=== PATIENT | female | born 1955 | race Hispanic/Latino ===

== ENCOUNTER 2017-11-06 10:34 | Observation (INO) | payer OTHER ==
[2017-11-06 11:32] LABS: Absolute Lymphocytes (CBC) 2.1 K/uL (0.7-4.9); Absolute Monocytes 0.5 K/uL (0.1-1.3); Absolute Neutrophil 8.9 K/uL (1.8-8.0); Basophils % 0.3 % (0-1.3); Eosinophils % 2.5 % (0-4.4); Hematocrit 45.9 % (36.0-45.0); Lymphocytes % 17.6 % (15.3-44.8); MCH 28.3 pg (27.0-35.0); MCV 84.8 fL (80-100); MPV 9.8 fL (7.6-11.3); Monocytes % 4.6 % (3.3-12.3); RBC Red Blood Cell Count 5.41 M/uL (3.86-4.86)
[2017-11-06] MEDS ORDERED: METOPROLOL TAR 50 MG TAB ONE (11:32)
[2017-11-06] MEDS ORDERED: ASPIRIN 81 MG CHEWABLE TABLET ONE (11:32)
[2017-11-06] MEDS ORDERED: MORPHINE 4 MG/ML SYR ONE (11:33)
[2017-11-06] MEDS ORDERED: ONDANSETRON 4 MG/2 ML VIAL ONE (11:33)
[2017-11-06 11:40] LABS: Protime INR 0.97
[2017-11-06 11:54] LABS: Albumin 3.8 g/dL (3.4-5.0); Bilirubin Direct 0.1 mg/dL (0-0.2); Bilirubin Total 0.5 mg/dL (0.2-1.0); CKMB Creatine Kinase MB 1.1 ng/mL (0.3-3.6); Magnesium 2.2 mg/dL (1.8-2.4); Potassium 3.7 mmol/L (3.5-5.1); Protein, Total 7.5 g/dL (6.4-8.2)
[2017-11-06] MEDS ORDERED: NA CHLORIDE 0.9% 100 ML IV ONE (11:59)
[2017-11-06] MEDS ORDERED: HYDROMORPHONE HCL 0.5 MG/0.5 ML INJ ONE (11:59)
--- NOTE | 2017-11-06 12:04 | EKG ---
Test Date: 2017-11-06 Test Time: 10:44:14 Paper Carrier: ULISES MEASUREMENT RESULTS: Intervals: Rate: 68 ID: [id number] QRSD: 84 QT: 396 QTc: 421 Rowe: P: 65 ID: [id number] QRS: 31 T: 56 INTERPRETIVE STATEMENTS: Normal sinus rhythm Normal ECG Compared to ECG 06/05/2013 11:24:39 No significant changes Electronically Signed On 11-06-17 12:03:25 CDT by Kit Peters
--- NOTE | 2017-11-06 12:25 | RAD REPORT ---
EXAM DESCRIPTION: CT - Thorax W/ Con CLINICAL HISTORY: Chest pain chest pain COMPARISON: Chest Single View dated 11/06/2017 FINDINGS: The lungs are clear. No pleural thickening or pleural effusion. No pneumothorax. No axillary, mediastinal or hilar adenopathy. No concerning bony finding. No gross upper abdominal finding. All CT scans are performed using dose optimization technique as appropriate and may include automated exposure control or mA/KV adjustment according to patient size. IMPRESSION: Negative study.
--- NOTE | 2017-11-06 12:26 | RAD REPORT ---
EXAM DESCRIPTION: RAD - Chest Single View - 11/06/2017 12:03 pm CLINICAL HISTORY: CHEST PAIN Chest pain. COMPARISON: CHEST SINGLE VIEW dated 05/05/2015; CHEST PA AND LAT 2 VIEW dated 08/25/2014; CHEST PA AND LAT 2 VIEW dated 06/09/2013; CHEST PA AND LAT 2 VIEW dated 09/11/2007 FINDINGS: Portable technique limits examination quality. The lungs are grossly clear. The heart is normal in size. No displaced fractures. IMPRESSION: No acute intrathoracic process suspected.
--- NOTE | 2017-11-06 13:27 | EDPHYS ---
Physician Documentation [facility] Name: Ketty Gayle Age: 62 yrs Sex: Female : 1955 Arrival Date: 11/06/2017 Time: 10:36 Bed 6 Private MD: Dmitry Kennedy ED Physician Adam Cobb HPI: 11/06 18:30 This 62 yrs old Female presents to ER via Ambulatory with complaints of Chest kdr Tightness, Nausea. 18:30 The patient or guardian reports chest pain that is located primarily in the substernal kdr area, anterior chest wall, bilaterally, chest diffusely. Onset: suddenly, Has been ongoing and intermittent for the past week or more. The pain radiates to left back. Associated signs and symptoms: Pertinent positives: nausea, syncope, Pertinent negatives: diaphoresis, dizziness, headache, lightheadedness, near syncope, palpitations, recent travel, shortness of breath, vomiting. The chest pain is described as aching, squeezing. Duration: The patient or guardian reports multiple episodes, that are intermittent, that wax and wane, with no pattern. Severity of pain: At its worst the pain was mild moderate just prior to arrival, in the emergency department the pain is unchanged. The patient has not experienced similar symptoms in the past. The patient has not recently seen a physician. Historical: - Allergies: 10:40 Ciprofloxacin; sg 10:40 Fortaz; sg - PMHx: 10:40 None; sg - PSHx: 10:40 Cholecystectomy; Hysterectomy; Appendectomy; sg - Immunization history:: Adult Immunizations up to date. - Social history:: Smoking status: Patient/guardian denies using tobacco, the patient reports quitting approximately 3 years ago. - Ebola Screening: : Patient negative for fever greater than or equal to 101.5 degrees Fahrenheit, and additional compatible Ebola Virus Disease symptoms Patient denies exposure to infectious person Patient denies travel to an Ebola-affected area in the 21 days before illness onset No symptoms or risks identified at this time. ROS: 18:30 Constitutional: Negative for fever, chills, and weight loss, Eyes: Negative for injury, kdr pain, redness, and discharge, ENT: Negative for injury, pain, and discharge, Neck: Negative for injury, pain, and swelling, Respiratory: Negative for shortness of breath, cough, wheezing, and pleuritic chest pain, Abdomen/GI: Negative for abdominal pain, nausea, vomiting, diarrhea, and constipation, Back: Negative for injury and pain, : Negative for injury, bleeding, discharge, and swelling, MS/Extremity: Negative for injury and deformity, Skin: Negative for injury, rash, and discoloration, Neuro: Negative for headache, weakness, numbness, tingling, and seizure activity. Psych: Negative for depression, anxiety, suicide ideation, homicidal ideation, and hallucinations, Allergy/Immunology: Negative for hives, rash, and allergies, Endocrine: Negative for neck swelling, polydipsia, polyuria, polyphagia, and marked weight changes, Hematologic/Lymphatic: Negative for swollen nodes, abnormal bleeding, and unusual bruising. 18:30 Cardiovascular: Positive for chest pain, edema. Exam: 18:30 Constitutional: This is a well developed, well nourished patient who is awake, alert, kdr and in no acute distress. Head/Face: Normocephalic, atraumatic. Eyes: Pupils equal round and reactive to light, extra-ocular motions intact. Lids and lashes normal. Conjunctiva and sclera are non-icteric and not injected. Cornea within normal limits. Periorbital areas with no swelling, redness, or edema. Neck: Trachea midline, no thyromegaly or masses palpated, and no cervical lymphadenopathy. Supple, full range of motion without nuchal rigidity, or vertebral point tenderness. No Meningismus. Chest/axilla: Normal chest wall appearance and motion. Nontender with no deformity. No lesions are appreciated. Cardiovascular: Regular rate and rhythm with a normal S1 and S2. No gallops, murmurs, or rubs. Normal PMI, no JVD. No pulse deficits. Respiratory: Lungs have equal breath sounds bilaterally, clear to auscultation and percussion. No rales, rhonchi or wheezes noted. No increased work of breathing, no retractions or nasal flaring. Abdomen/GI: Soft, non-tender, with normal bowel sounds. No distension or tympany. No guarding or rebound. No evidence of tenderness throughout. Back: No spinal tenderness. No costovertebral tenderness. Full range of motion. Skin: Warm, dry with normal turgor. Normal color with no rashes, no lesions, and no evidence of cellulitis. MS/ Extremity: Pulses equal, no cyanosis. Neurovascular intact. Full, normal range of motion. Neuro: Awake and alert, GCS 15, oriented to person, place, time, and situation. Cranial nerves II-XII grossly intact. Motor strength 5/5 in all extremities. Sensory grossly intact. Cerebellar exam normal. Normal gait. Psych: Awake, alert, with orientation to person, place and time. Behavior, mood, and affect are within normal limits. Vital Signs: 10:39 BP 154 / 69; Pulse 72; Resp 17; Pulse Ox 98% on R/A; Pain 5/10; sg 11:30 BP 126 / 76; Pulse 66; Resp 18; Pulse Ox 99% on 2 lpm NC; sv 12:32 BP 144 / 92; Pulse 63 MON; Resp 14; Pulse Ox 100% on 2 lpm NC; sv 13:08 BP 113 / 66; Pulse 58 MON; Resp 14; Pulse Ox 100% on 2 lpm NC; sv 13:51 BP 107 / 65; Pulse 57 MON; Resp 19; Pulse Ox 100% on 2 lpm NC; sv 14:53 BP 117 / 88; Pulse 69; Resp 20; Pulse Ox 99% on 2 lpm NC; sv 12:32 Sinus Rhythm sv 13:08 Sinus bradycardia sv 13:51 Sinus bradycardia sv MDM: 13:26 Patient medically screened. kdr 18:30 Data reviewed: vital signs, nurses notes, lab test result(s), EKG. kdr 18:30 Special discussion: Based on the patient's history, exam, and Dx evaluation, there is kdr no indication for emergent intervention or inpatient Tx. It is understood by the patient/guardian that if the Sx's persist or worsen they need to return immediately for re-evaluation. 11/06 11:16 Order name: Basic Metabolic Panel; Complete Time: 12:50 sv 11/06 11:16 Order name: CBC with Diff; Complete Time: 12:50 sv 11/06 11:16 Order name: Ckmb; Complete Time: 12:50 sv 11/06 11:16 Order name: CPK; Complete Time: 12:50 sv 11/06 11:16 Order name: LFT's; Complete Time: 12:50 sv 11/06 11:16 Order name: Magnesium; Complete Time: 12:50 sv 11/06 11:16 Order name: NT PRO-BNP; Complete Time: 12:50 sv 11/06 11:16 Order name: PT-INR; Complete Time: 12:50 sv 11/06 11:16 Order name: Ptt, Activated; Complete Time: 12:50 sv 11/06 11:16 Order name: Troponin (emerg Dept Use Only); Complete Time: 12:50 sv 11/06 13:30 Order name: Basic Metabolic Panel EDMS 11/06 13:30 Order name: Basic Metabolic Panel EDMS 11/06 13:30 Order name: CBC with Automated Diff EDMS 11/06 13:30 Order name: CBC with Automated Diff EDMS 11/06 11:16 Order name: XRAY Chest (1 view); Complete Time: 12:50 sv 11/06 11:16 Order name: EKG; Complete Time: 11:17 sv 11/06 11:53 Order name: CT Chest W/ Con; Complete Time: 12:50 ss 11/06 13:23 Order name: Diet Heart Healthy; Complete Time: 13:23 sv 11/06 13:30 Order name: CONS Physician Consult EDMS 11/06 13:30 Order name: Regular EDMS 11/06 13:30 Order name: EKG Electrocardiogram EDMS 11/06 13:30 Order name: EKG Electrocardiogram EDMS 11/06 13:30 Order name: Troponin I EDMS 11/06 13:30 Order name: Troponin I EDMS 11/06 13:30 Order name: Troponin I EDMS 11/06 11:16 Order name: Cardiac monitoring; Complete Time: 11:39 sv 11/06 11:16 Order name: EKG - Nurse/Tech; Complete Time: 11:39 sv 11/06 11:16 Order name: IV Saline Lock; Complete Time: 11:39 sv 11/06 11:16 Order name: Labs collected and sent; Complete Time: 11:39 sv 11/06 11:16 Order name: O2 Per Protocol; Complete Time: 11:39 sv 11/06 11:16 Order name: O2 Sat Monitoring; Complete Time: 11:40 sv 11/06 13:30 Order name: EKG Electrocardiogram EDMS 11/06 13:30 Order name: EKG Electrocardiogram EDMS Administered Medications: 11:34 Drug: Zofran 4 mg Route: IVP; Site: right wrist; sv 11:55 Follow up: Response: No adverse reaction sv 11:36 Drug: morphine 4 mg Route: IVP; Site: right forearm; sv 11:55 Follow up: Response: No adverse reaction sv 11:38 Drug: Aspirin Chewable Tablet 324 mg Route: PO; sv 12:20 Follow up: Response: No adverse reaction sv 11:38 Drug: Lopressor (metoprolol TARTRATE) 50 mg Route: PO; sv 12:20 Follow up: Response: No adverse reaction sv 13:29 Not Given (Patient Refused): Dilaudid 0.5 mg IVP once; mix in 100 mls NS over 30 mins sv Disposition: 11/06/17 13:26 Hospitalization ordered by Dmitry Kennedy for Observation. Preliminary diagnosis is Chest pain, unspecified. - Bed requested for Telemetry/MedSurg (observation). - Status is Observation. sv - Condition is Fair. - Problem is new. - Symptoms have improved. UTI on Admission? No Signatures: Dispatcher [employer] EDJulieta Yan RN RN sv Woody, Diana, RN RN dw Gay, Steven, RN RN Adam Cobb MD MD kdr Corrections: (The following items were deleted from the chart) 13:53 13:26 Hospitalization Ordered by Dmitry Kennedy MD for Observation. Preliminary dw diagnosis is Chest pain, unspecified. Bed requested for Telemetry/MedSurg (observation). Status is Observation. Condition is Fair. Problem is new. Symptoms have improved. UTI on Admission? No. kdr 14:55 13:53 11/06/2017 13:26 Hospitalization Ordered by Dmitry Kennedy MD for Observation. sv Preliminary diagnosis is Chest pain, unspecified. Bed requested for Telemetry/MedSurg (observation). Status is Observation. Condition is Fair. Problem is new. Symptoms have improved. UTI on Admission? No. dw
--- NOTE | 2017-11-06 13:27 | ER ---
Nurse's Notes [facility] Name: Ketty Gayle Age: 62 yrs Sex: Female : 1955 Arrival Date: 11/06/2017 Time: 10:36 Bed 6 Private MD: Dmitry Kennedy Diagnosis: Chest pain, unspecified Presentation: 11/06 10:38 Presenting complaint: Patient states: Chest tightness that started about 1000, sg radiating up into right side of neck and jaw, reports nausea and now has a headache. Transition of care: patient was not received from another setting of care. Onset of symptoms was November 06, 2017. Risk Assessment: Do you want to hurt yourself or someone else? Patient reports no desire to harm self or others. Initial Sepsis Screen: Does the patient meet any 2 criteria? No. Patient's initial sepsis screen is negative. Does the patient have a suspected source of infection? No. Patient's initial sepsis screen is negative. Care prior to arrival: None. 10:38 Method Of Arrival: Ambulatory sg 10:38 Acuity: CAMERON 3 sg Historical: - Allergies: 10:40 Ciprofloxacin; sg 10:40 Fortaz; sg - PMHx: 10:40 None; sg - PSHx: 10:40 Cholecystectomy; Hysterectomy; Appendectomy; sg - Immunization history:: Adult Immunizations up to date. - Social history:: Smoking status: Patient/guardian denies using tobacco, the patient reports quitting approximately 3 years ago. - Ebola Screening: : Patient negative for fever greater than or equal to 101.5 degrees Fahrenheit, and additional compatible Ebola Virus Disease symptoms Patient denies exposure to infectious person Patient denies travel to an Ebola-affected area in the 21 days before illness onset No symptoms or risks identified at this time. Screenin:25 Abuse screen: Denies threats or abuse. Denies injuries from another. Nutritional sv screening: No deficits noted. Tuberculosis screening: No symptoms or risk factors identified. Fall Risk None identified. Assessment: 11:25 Also complains of nausea. General: Appears in no apparent distress. uncomfortable, well sv groomed, well developed, Behavior is calm, cooperative, appropriate for age. Pain: Complains of pain in anterior aspect of right upper chest, anterior aspect of left upper chest and mid-sternal area Pain radiates to right cheek, right mandible, right lateral aspect of neck and right anterior aspect of neck Pain currently is 5 out of 10 on a pain scale. Quality of pain is described as pressure, Pain began 1 hour ago. Is continuous, lasting 30 minutes. Alleviated by nothing. Also complains of nausea, Current management - is no interventions. Neuro: Level of Consciousness is awake, alert, obeys commands, Oriented to person, place, time, situation, Moves all extremities. Full function Gait is steady, Speech is normal. Cardiovascular: Patient's skin is warm and dry. Rhythm is sinus rhythm. Respiratory: Respiratory effort is even, unlabored, Respiratory pattern is regular, symmetrical. GI: Reports nausea. : No signs and/or symptoms were reported regarding the genitourinary system. EENT: No signs and/or symptoms were reported regarding the EENT system. Derm: Skin is pink, warm \\T\\ dry. Musculoskeletal: No signs and/or symptoms reported regarding the musculoskeletal system. 11:55 Reassessment: Patient and/or family updated on plan of care and expected duration. Pain sv level reassessed. Patient is alert, oriented x 3, equal unlabored respirations, skin warm/dry/pink. Pt reports the pain has increased and is now in her epigastric area. Informed Dr Cobb, medication order received. 12:19 Reassessment: Patient and/or family updated on plan of care and expected duration. Pain sv level reassessed. Patient is alert, oriented x 3, equal unlabored respirations, skin warm/dry/pink. Pt stated that her pain has improved after coming back from CT. Pt does not want pain medication at this time. Patient states symptoms have improved. 13:23 Reassessment: Patient appears in no apparent distress at this time. Patient and/or sv family updated on plan of care and expected duration. Pain level reassessed. Patient is alert, oriented x 3, equal unlabored respirations, skin warm/dry/pink. Went in with Dr Cobb for reassessment of the pt and to discuss POC. Pt is ok with admission. Pt also reported to him that she was unable to fully hear out of her ears, she felt "foggy". CT head brought up to the pt by Dr Cobb but pt stated she will opt out of it. She states she thinks its from her headache and stress. Patient states symptoms have improved. 14:00 Reassessment: Patient appears in no apparent distress at this time. Patient and/or sv family updated on plan of care and expected duration. Pain level reassessed. Patient is alert, oriented x 3, equal unlabored respirations, skin warm/dry/pink. Vital Signs: 10:39 BP 154 / 69; Pulse 72; Resp 17; Pulse Ox 98% on R/A; Pain 5/10; sg 11:30 BP 126 / 76; Pulse 66; Resp 18; Pulse Ox 99% on 2 lpm NC; sv 12:32 BP 144 / 92; Pulse 63 MON; Resp 14; Pulse Ox 100% on 2 lpm NC; sv 13:08 BP 113 / 66; Pulse 58 MON; Resp 14; Pulse Ox 100% on 2 lpm NC; sv 13:51 BP 107 / 65; Pulse 57 MON; Resp 19; Pulse Ox 100% on 2 lpm NC; sv 14:53 BP 117 / 88; Pulse 69; Resp 20; Pulse Ox 99% on 2 lpm NC; sv 12:32 Sinus Rhythm sv 13:08 Sinus bradycardia sv 13:51 Sinus bradycardia sv ED Course: 10:36 Patient arrived in ED. sb2 10:37 Dmitry Kennedy MD is Private Physician. sb2 10:39 Triage completed. sg 10:40 Arm band placed on. sg 10:47 EKG done, by flight data technician. reviewed by Adam Cobb MD. at1 11:15 Adam Cobb MD is Attending Physician. kdr 11:15 Julieta Bonilla, CHIO is Primary Nurse. sv 11:25 Patient has correct armband on for positive identification. Placed in gown. Bed in low sv position. Call light in reach. pvc monitor on. Pulse ox on. NIBP on. Door closed. Warm blanket given. Head of bed elevated. 11:25 Initial lab(s) drawn, by me, sent to lab. Inserted saline lock: 20 gauge in right sv forearm, using aseptic technique. Blood collected. Flushed right forearm with 5 ml normal saline. 11:25 Oxygen administration via nasal cannula \\T\\ 2L/min. sv 11:[address] via wheelchair. kw1 12:01 X-ray completed. Portable x-ray completed in exam room. Patient tolerated procedure ml well. 12:02 XRAY Chest (1 view) In Process Unspecified. EDMS 12:04 CT completed. Patient tolerated procedure well. Patient moved back from CT. vr 12:07 CT Chest W/ Con In Process Unspecified. EDMS 13:25 Dmitry Kennedy MD is Hospitalizing Provider. kdr 13:59 No provider procedures requiring assistance completed. Patient admitted, IV remains in sv place. intact. Administered Medications: 11:34 Drug: Zofran 4 mg Route: IVP; Site: right wrist; sv 11:55 Follow up: Response: No adverse reaction sv 11:36 Drug: morphine 4 mg Route: IVP; Site: right forearm; sv 11:55 Follow up: Response: No adverse reaction sv 11:38 Drug: Aspirin Chewable Tablet 324 mg Route: PO; sv 12:20 Follow up: Response: No adverse reaction sv 11:38 Drug: Lopressor (metoprolol TARTRATE) 50 mg Route: PO; sv 12:20 Follow up: Response: No adverse reaction sv 13:29 Not Given (Patient Refused): Dilaudid 0.5 mg IVP once; mix in 100 mls NS over 30 mins sv Outcome: 13:26 Decision to Hospitalize by Provider. kdr 14:40 Admitted to Tele accompanied by tech, via wheelchair, room 418, with oxygen, with sv chart, Report called to Veronica BARROSO 14:40 Condition: stable 14:40 Instructed on the need for admit. 14:55 Patient left the ED. sv Signatures: Dispatcher [employer] EDMS Julieta Bonilla RN RN sv Gay, Steven, RN RN Adam Cobb MD MD kdr Lopez, Yelena Núñez Amanda, licensed occupational therapist EKG Tat1 Cheryl Lopez kw1 Felicia Tse
[2017-11-06] MEDS ORDERED: ONDANSETRON 4 MG/2 ML VIAL IV PRN (13:28)
[2017-11-06 16:07] VITALS: BMI 28.9
[2017-11-06 17:49] VITALS: O2SAT 98
[2017-11-06] MEDS: ACETAMINOPHEN 500 MG TAB PO PRN (22:00)
--- NOTE | 2017-11-06 22:22 | CON ---
History Of Present Illness: Ms. Gayle came to our emergency room because of chest pain. The pain is gone now. It was tightness, heaviness in the chest, resolved after a couple of hours. There is s weating and dizziness. She has never had myocardial infarction or stroke. Since being here, her EKG s and enzymes look normal. She uses no tobacco. She has never had any vascular disease before. She has a history of hypertension, but not diabetes or dyslipidemia. She is allergic to Ceftazidime pen tahydrate and Cipro. She is multigravid. She has had gallbladder surgery. Physical Examination: Vital Signs: 5 feet 5 inches, 174 pounds. HEENT: Normal. Lungs: Clear. Cardiac: normal. Abdomen: Soft. Extremities: Normal. Plan: I will recommend that she have a nuclear stress test and echo tomorrow. If those are normal, she could be discharged. SALTY/GUILLERMO Voice ID: [id number] Report ID: [id number]
[2017-11-07 05:55] LABS: Absolute Lymphocytes (CBC) 2.6 K/uL (0.7-4.9); Absolute Monocytes 0.5 K/uL (0.1-1.3); Absolute Neutrophil 6.2 K/uL (1.8-8.0); Basophils % 0.3 % (0-1.3); Eosinophils % 3.5 % (0-4.4); Hematocrit 43.2 % (36.0-45.0); Lymphocytes % 26.9 % (15.3-44.8); MCH 29.1 pg (27.0-35.0); MCV 85.4 fL (80-100); MPV 9.9 fL (7.6-11.3); Monocytes % 5.4 % (3.3-12.3); RBC Red Blood Cell Count 5.06 M/uL (3.86-4.86)
[2017-11-07 06:09] LABS: Potassium 4.9 mmol/L (3.5-5.1)
[2017-11-07] MEDS: ASPIRIN EC 81 MG TAB PO SCH ×2 (09:00→12:56)
--- NOTE | 2017-11-07 12:03 | RAD REPORT ---
EXAM DESCRIPTION: NM - Rest Stress Cardiac Imaging - 11/07/2017 11:18 am CLINICAL HISTORY: CP Chest pain. COMPARISON: No comparisons TECHNIQUE: The patient was administered approximately 10mCi of Tc 99m Sestamibi prior to resting SPE CT imaging of the heart. The patient was then administered approximately 30 mCi of Tc 99m Sestamibi f ollowing exercise or pharmacologic stress. Multiplanar SPECT images were reviewed. FINDINGS: No stress induced ischemic defect is seen to suggest stress induced ischemia. No fixed def ect is seen to suggest hibernating myocardium or scarred myocardium. The end diastolic volume is 68 ml, the end systolic volume is 19 ml, and the ejection fraction is 72 %. IMPRESSION: No stress induced ischemia.
--- NOTE | 2017-11-07 12:18 | ECHO ---
HEIGHT: 5 ft 5 in WEIGHT: 174 lb 0 oz DATE OF STUDY: 11/07/[address]: Kit Peters MD 2-DIMENSIONAL: YES M.MODE: YES DOPPLER: YES COLOR FLOW: YES TDS: NO PORTABLE: NO DEFINITY: NO BUBBLE STUDY: YES DIAGNOSIS: CHEST PAIN CARDIAC HISTORY: CATHERIZATION: NO SURGERY: NO PROSTHETIC VALVE: NO PACEMAKER: NO MEASUREMENTS (cm) DIASTOLIC (NORMALS) SYSTOLIC (NORMALS) IVSd 1.0 (0.6-1.2) LA Diam 2.9 (1.9-4.0) LVEF 60% LVIDd 3.9 (3.5-5.7) LVIDs 2.7 (2.0-3.5) %FS 32% LVPWd 1.1 (0.6-1.2) Ao Diam 2.5 (2.0-3.7) 2 DIMENSIONAL ASSESSMENT: RIGHT ATRIUM: NORMAL LEFT ATRIUM: NORMAL RIGHT VENTRICLE: NORMAL LEFT VENTRICLE: NORMAL TRICUSPID VALVE: NORMAL MITRAL VALVE: NORMAL PULMONIC VALVE: NORMAL AORTIC VALVE: NORMAL PERICARDIAL EFFUSION: NONE AORTIC ROOT: NORMAL LEFT VENTRICULAR WALL MOTION: NORMAL. DOPPLER/COLOR FLOW: TRACE OF MITRAL AND TRICUSPID REGURGITATION. NORMAL RIGHT VENTRICULAR SYSTOLIC PRESSURE. COMMENTS: NORMAL 2D ECHO. TRACE OF MITRAL AND TRICUSPID REGURGITATION. TECHNOLOGIST: ALISON ANTON
[2017-11-07] MEDS: ACETAMINOPHEN 500 MG TAB PO PRN (12:57)
--- NOTE | 2017-11-07 13:36 | TREADMILL ---
70% H.R.: 117 85% H.R.: 136 90% H.R.: 144 100% H.R.: 160 DX: CHEST PAIN Date of Study: 11/07/2017 Ht: 5 5 Wt: 174 lb 0 oz Consulting Physician: ADEEL MEDICATIONS: TYLENOL, ASPIRIN, ZOFRAN, RESTORIL HISTORY: 62 YEAR OLD FEMALE HERE FOR CHEST PAIN. HISTORY OF PAST GERD. PHYSICIAL EXAMINATION: RESTING B.P.: 120/74 RESTING H.R.: 62 RESTING EKG: NORMAL PROTOCOL: ZAID CARDIOLITE EXERCISE TIME: 8:01 MAXIMUM HEART RATE: 137 % OF PREDICTED B.P. AT PEAK STRESS: 118/68 H.R. AT 1 MINUTE POST EXERCISE: 118 IMPRESSION: ZAID CARDIOLITE STRESS TEST PERFORMED. CARDIOLITE INJECTED PER PROTOCOL. TEST STOPPED DUE TO TARGET HEART RATE AND FATIGUE. PREMATURE VENTRICULAR COMPLEXES NOTED POST TEST. COMPLAINTS OF TIGHTNESS TO THROAT DURING TREADMILL THAT WAS REDUCING POST. SEE NUCLEAR MEDICINE REPORT. NON DIAGNOSTIC EKG WITH STRESS.
[2017-11-07 18:47] VITALS: BP 129/54; TEMP 97.4
[2017-11-07] MEDS ORDERED: TEMAZEPAM 15 MG CAP PO SCH (21:00)
--- NOTE | 2017-11-07 23:06 | SS ---
Date of Discharge: 11/07/2017 Hospital Course: The patient was admitted to the hospital on 11/06, had presented to the emergency ro om with rather severe central chest pain with some radiation to her back and neck into her jaw. Poss ibility of it being cardiac was considered. She was admitted for a cardiac workup. Her initial enzy mes were normal as was EKG. During her hospital stay, she had minimal complaints. She was given saroj lgesics in the form of morphine in the ER. Stated had 2 similar episodes, although not quite as raúl re, a couple of weeks earlier. In between times, she has been okay, functioning fine. She has been under extreme amount of stress as her daughter has been recently diagnosed with a stage IV stomach ca ncer. The rest of her cardiac workup including an echo and Cardiolite stress test were normal. She was slightly hypertensive on admission. She states she has not been able to sleep. She was given Da lmane, which she said she felt much better with. She was therefore discharged to follow up with the acute care nursing assistant for an EGD. The probability of it being pylorospasm is most likely etiology, poss ibly secondary to stress and/or other pathology, and Ativan obviously for her anxiety. Discharged in good condition. Final Diagnoses: Chest pain, atypical; acute pylorospasm; insomnia; generalized anxiety disorder. HR/MODL Voice ID: [id number] Report ID: [id number]
== END 2017-11-07 17:50 | disposition home or self-care (01) ==
LOC: ER 10:34 → INTOOBSV 13:27 → ERHOLD 13:27 → 4TH 14:24
PROVIDERS: ADMIT Family Medicine; ATTEND Family Medicine
DX: R07.89 Other chest pain (principal); K31.3 Pylorospasm, not elsewhere classified; G47.00 Insomnia, unspecified; F41.1 Generalized anxiety disorder
CPT/HCPCS: 36415; 71045; 71260; 78452; 80048; 80076; 82550; 82553; 83735; 83880; 84484; 85025; 85610; 85730; 93005; 93017; 93306; 96374; 96375; 99285; A9500; G0378; J1170; J2405; Q9967